=== PATIENT | male | born 1965 | race African-American/Black ===

== ENCOUNTER 2019-06-02 15:50 | Inpatient (IN) | payer OTHER ==
[2019-06-02] MEDS ORDERED: guaiFENesin 200 MG/10 ML 10 ML UNIT-DOSE CUPS PO PRN (17:06)
[2019-06-02] MEDS ORDERED: MAGNESIUM HYDROX 2400MG/30ML ORAL SUSPENSION 30 ML CUP PO PRN (17:06)
[2019-06-02] MEDS ORDERED: ACETAMINOPHEN 325 MG TABLET (FP) PO PRN (17:06)
[2019-06-02] MEDS ORDERED: MAGNESIUM CITRATE 300 ML BOTTLE PO PRN (17:06)
[2019-06-02] MEDS ORDERED: MAG HYDROX/AL HYDROX/SIMETH 30 ML UNIT-DOSE CUP PO PRN (17:06)
[2019-06-02] MEDS ORDERED: IBUPROFEN 400 MG TABLET (FP) PO PRN (17:06)
[2019-06-02] MEDS ORDERED: MENTHOL/PHENOL 1 EACH UD MM PRN (17:06)
[2019-06-02] MEDS ORDERED: P-EPHED 60MG/TRIPROLIDI 2.5MG TABLET PO PRN (17:06)
--- NOTE | 2019-06-02 17:08 | PN ---
[facility] Progress Note Note: pt transferred from detox to rehab today per nursing
--- NOTE | 2019-06-02 17:25 | CONSULT ---
[facility] Psychiatric Consult - Data Date of interview: 06/02/19 Admission source: Transfer from [address] [place] [address]. Identifying data: Transition to [facility] [place] [address] [place] [address] (post- detoxification) for this 53 y/o [place]-born male who sought to enlist in rehabilitation treatment for maintenance of sobriety (EDWARD issues : alcohol, cocaine, nicotine) + management of co-morbid schizoaffective disorder. Patient is single, no dependents, homeless, unemployed and supported on SSI/SSD benefits. Substance Abuse History: Discussed with the patient. EDWARD profile as follows : Smoking history: Current every day smoker. Have you smoked in the past 12 months: Yes. Aproximately how many cigarettes per day: 20. Cigars Per Day: 0. Hx Chewing Tobacco Use: No. Initiated information on smoking cessation: Yes. 'Breaking Loose' booklet given: 05/30/19. - Substances abused. Alcohol. Substance route: Oral. Amount used: 4 pints. Age of first use: 19. Date of last use: 05/29/19. Crack. Substance route: Smoking. Frequency: Daily. Amount used: $20 - 200. Age of first use: 32. Date of last use: 05/29/19 Medical History: Medical profile is remarkable for hypercholesterolemia, hypertension, peripheral neuropathy and history of surgeries (fracture of mandible, extraction of wisdom tooth). Psychiatric History: Extensive history of psychiatric illness (onset of emotional disturbances : early 30's). Patient admits to a history of multiple psychiatric hospitalizations ([facility], [facility]). First hospitalization had occurred in 1989 ([facility]). Patient was initially diagnosed with Schizophrenia but this diagnosis was later revised to Schizoaffective Disorder. Mr Campos reports current psychiatric follow-up, under the care of Dr Solo, at the [facility] (located at [address] [facility] in [place], [place]). Patient is still maintained on a regimen of olanzapine 20 mg/hs + mirtazapine 7.5 mg/hs. History of one suicide attempt via overdose with pills (1999). Physical/Sexual Abuse/Trauma History: Patient denies. Additional Comment: Urine drug screen results: CRISTHIAN-Cocaine, BZO-Benzodiazepines. Noted. Mental Status Exam - Mental Status Exam Alert and Oriented to: Time, Place, Person Cognitive Function: Good Patient Appearance: Well Groomed Mood: Hopeful, Euthymic Affect: Appropriate, Normal Range Patient Behavior: Appropriate, Cooperative Speech Pattern: Clear, Appropriate Voice Loudness: Normal Thought Process: Goal Oriented Thought Disorder: Not Present Hallucinations: Denies Suicidal Ideation: Denies Homicidal Ideation: Denies Insight/Judgement: Fair Sleep: Fair Appetite: Good Gait/Station: Normal Psychiatric Findings - Problem List ([place] 1, 2,3) (1) Alcohol dependence Current Visit: Yes Status: Chronic (2) Cocaine dependence Current Visit: Yes Status: Chronic (3) Nicotine dependence, uncomplicated Current Visit: Yes Status: Chronic Qualifiers: Nicotine product type: cigarettes Qualified Code(s): F17.210 - Nicotine dependence, cigarettes, uncomplicated (4) Schizoaffective disorder Current Visit: Yes Status: Chronic Qualifiers: Schizoaffective disorder type: bipolar Qualified Code(s): F25.0 - Schizoaffective disorder, bipolar type (5) Insomnia Current Visit: Yes Status: Chronic - Initial Treatment Plan Initial Treatment Plan: Psychoeducation. Motivational counseling. Sleep hygiene. Support and reassurance provided to the patient. AA meetings. Groups. Individual psychotherapy. Recreational therapy. Continuity of care via resumption of med ications (from [address] [place] [address]) : gabapentin 100 mg po tid + olanzapine 20 mg po hs + mirtazapine 7.5 mg po hs. Side effects/benefits of these medications are reviewed with patient. Mr Campos endorses good tolerability + efficacious response. He remains in agreement with this plan of care. Informed consent (verbal) given to MD. Perdomo.
[2019-06-02] MEDS: VARENICLINE TARTRATE 1 MG TAB PO SCH (21:02)
[2019-06-02] MEDS: THIAMINE HCL 100 MG TABLET (FP) PO SCH (21:03)
[2019-06-02] MEDS: GABAPENTIN 100 MG CAPSULE PO SCH (21:04)
[2019-06-02] MEDS: OLANZapine 10 MG TABLET PO SCH (21:04)
[2019-06-02] MEDS: MIRTAZAPINE 15 MG TABLET (FP) PO SCH (21:04)
[2019-06-03] MEDS: GABAPENTIN 100 MG CAPSULE PO SCH ×3 (06:25→21:08)
[2019-06-03] MEDS ORDERED: PATIENT'S OWN MEDICATION (NON-FORMULARY) (Olmesartan Medoxomil [Benicar] 20 MG) PO SCH (10:00)
[2019-06-03] MEDS: amLODIPine BESYLATE 10 MG TABLET (FP) PO SCH (10:31)
[2019-06-03] MEDS: VARENICLINE TARTRATE 1 MG TAB PO SCH ×2 (10:31→21:07)
[2019-06-03] MEDS: VALSARTAN 160 MG TABLET (UD) PO SCH (10:31)
[2019-06-03] MEDS: PRENATAL VITAMINS W/ FOLIC ACID TABLET (FP) PO SCH (10:31)
[2019-06-03] MEDS: OLANZapine 10 MG TABLET PO SCH (21:07)
[2019-06-03] MEDS: THIAMINE HCL 100 MG TABLET (FP) PO SCH (21:08)
[2019-06-03] MEDS: MIRTAZAPINE 15 MG TABLET (FP) PO SCH (21:08)
[2019-06-04] MEDS: GABAPENTIN 100 MG CAPSULE PO SCH ×3 (06:52→19:33)
[2019-06-04] MEDS: VALSARTAN 160 MG TABLET (UD) PO SCH (10:01)
[2019-06-04] MEDS: VARENICLINE TARTRATE 1 MG TAB PO SCH ×2 (10:02→21:10)
[2019-06-04] MEDS: PRENATAL VITAMINS W/ FOLIC ACID TABLET (FP) PO SCH (10:02)
[2019-06-04] MEDS: amLODIPine BESYLATE 10 MG TABLET (FP) PO SCH (10:02)
[2019-06-04] MEDS: THIAMINE HCL 100 MG TABLET (FP) PO SCH (21:09)
[2019-06-04] MEDS: OLANZapine 10 MG TABLET PO SCH (21:09)
[2019-06-04] MEDS: MIRTAZAPINE 15 MG TABLET (FP) PO SCH (21:10)
[2019-06-05] MEDS: GABAPENTIN 100 MG CAPSULE PO SCH ×3 (06:34→21:09)
[2019-06-05] MEDS: VALSARTAN 160 MG TABLET (UD) PO SCH (10:24)
[2019-06-05] MEDS: VARENICLINE TARTRATE 1 MG TAB PO SCH ×2 (10:24→21:11)
[2019-06-05] MEDS: PRENATAL VITAMINS W/ FOLIC ACID TABLET (FP) PO SCH (10:24)
[2019-06-05] MEDS: amLODIPine BESYLATE 10 MG TABLET (FP) PO SCH (10:24)
[2019-06-05] MEDS: OLANZapine 10 MG TABLET PO SCH (21:09)
[2019-06-05] MEDS: THIAMINE HCL 100 MG TABLET (FP) PO SCH (21:09)
[2019-06-05] MEDS: MIRTAZAPINE 15 MG TABLET (FP) PO SCH (21:10)
[2019-06-06] MEDS: GABAPENTIN 100 MG CAPSULE PO SCH ×3 (06:46→19:52)
[2019-06-06] MEDS: PRENATAL VITAMINS W/ FOLIC ACID TABLET (FP) PO SCH (10:35)
[2019-06-06] MEDS: amLODIPine BESYLATE 10 MG TABLET (FP) PO SCH (10:35)
[2019-06-06] MEDS: VARENICLINE TARTRATE 1 MG TAB PO SCH ×2 (10:36→21:34)
[2019-06-06] MEDS: VALSARTAN 160 MG TABLET (UD) PO SCH (10:36)
[2019-06-06] MEDS: THIAMINE HCL 100 MG TABLET (FP) PO SCH (21:34)
[2019-06-06] MEDS: OLANZapine 10 MG TABLET PO SCH (21:34)
[2019-06-06] MEDS: MIRTAZAPINE 15 MG TABLET (FP) PO SCH (21:35)
[2019-06-07] MEDS: GABAPENTIN 100 MG CAPSULE PO SCH ×3 (06:13→20:35)
[2019-06-07] MEDS: amLODIPine BESYLATE 10 MG TABLET (FP) PO SCH (09:42)
[2019-06-07] MEDS: PRENATAL VITAMINS W/ FOLIC ACID TABLET (FP) PO SCH (09:42)
[2019-06-07] MEDS: VARENICLINE TARTRATE 1 MG TAB PO SCH ×2 (09:43→21:04)
[2019-06-07] MEDS: VALSARTAN 160 MG TABLET (UD) PO SCH (09:43)
[2019-06-07] MEDS ORDERED: RAPID SEQUENCE INTUBATION KIT NR ONE (10:14)
[2019-06-07] MEDS: OLANZapine 10 MG TABLET PO SCH (21:03)
[2019-06-07] MEDS: THIAMINE HCL 100 MG TABLET (FP) PO SCH (21:03)
[2019-06-07] MEDS: MIRTAZAPINE 15 MG TABLET (FP) PO SCH (21:03)
[2019-06-08] MEDS: GABAPENTIN 100 MG CAPSULE PO SCH ×3 (06:07→20:15)
[2019-06-08] MEDS: amLODIPine BESYLATE 10 MG TABLET (FP) PO SCH (09:55)
[2019-06-08] MEDS: PRENATAL VITAMINS W/ FOLIC ACID TABLET (FP) PO SCH (09:55)
[2019-06-08] MEDS: VALSARTAN 160 MG TABLET (UD) PO SCH (09:56)
[2019-06-08] MEDS: VARENICLINE TARTRATE 1 MG TAB PO SCH ×2 (09:56→21:20)
--- NOTE | 2019-06-08 10:20 | DS ---
[facility] Rehab Discharge Summary - [facility] Rehab Discharge Summary Admission Date: 06/02/19 Discharge Date: 06/08/19 - History Present History: Alcohol dependence, Cocaine dependence Pertinent Past History: Mr. Campos is a 53 yo gentleman who is in rehab for alcohol and cocaine use. He was last admitted here for detox in 2016. PMH: HTN, HLD, on Norvasc/took yesterday, on no meds for HLD PSH: oral Psych: schizoaffective, on Olanzapine, Remeron and gabapentin, Soc: lives in a custodial Substance use hx Alcohol: 4 pints Vodka dialy, first use age 19y No hx of seizure. Hx of several black outs. CracK; $20-200. daily, first use age 32y, Nicotine: one ppd - Discharge Physical Exam Vital Signs: Vital Signs Temperature 97.6 F 06/08/19 06:46 Pulse Rate 75 06/08/19 08:10 Respiratory Rate 18 06/08/19 08:10 Blood Pressure 128/72 06/08/19 08:10 O2 Sat by Pulse Oximetry (%) 99 06/08/19 06:46 Pertinent Admission Physical Exam Findings: Physical General Appearance: No apparent distress HEENTM: Normocephalic Respiratory:Lungs Clear, Neck: supple, Cardiology: S1, S2 Abdominal: + Bowel Sounds Musculoskeletal: Full weight bearing, steady gait, full ROM Neurological: CN 2-12 intact - Treatment Discharge Condition: Discharge condition good (Medically stable for discharge. Pt says he will go back to his program at [facility]) Hospital Course: Patient attended groups, had 1:1 with his counselor, was seen by the psychiatric service. He had no acute or urgent medical problems while in rehab. He was adherent to his medication regimen and his treatment plan. - Medication Discharge Medications: Ambulatory Orders Amlodipine Besylate [Norvasc -] 10 mg PO DAILY #0 tablet 06/05/12 Olanzapine [ZyPREXA -] 20 mg PO HS #30 tablet 12/28/14 Mirtazapine 7.5 mg PO HS 11/26/15 Gabapentin 100 mg PO TID 05/30/19 Olmesartan Medoxomil [Benicar] 20 mg PO DAILY 05/30/19 Varenicline Tartrate [Chantix -] 1 mg PO BID 05/30/19 Valsartan [Diovan] 160 mg PO DAILY tablet 06/02/19 - Medication-Assisted Treatment (MAT) Medication-Assisted Treatment (MAT): No - Discharge Instructions Diet, activity, other medical instructions: Diet: as tolerated Activity: as tolerated Other medical instructions: Please follow up with discharge instructions and return to [facility]. Medical provider at [facility]- Dr. Long, Psychiatric provider: Dr. Grayson - Diagnosis (1) Alcohol dependence Current Visit: Yes Status: Chronic (2) Cocaine dependence Current Visit: Yes Status: Chronic - Follow-up Referral Minutes to complete discharge: 15 - AMA Did Patient Leave Against Medical Advice: No Additional Comments: Patient states he does not need any medications, he gets them from his program on a weekly basis. Patient will be discharged on 06/10/2019
[2019-06-08] MEDS: OLANZapine 10 MG TABLET PO SCH (21:20)
[2019-06-08] MEDS: THIAMINE HCL 100 MG TABLET (FP) PO SCH (21:20)
[2019-06-08] MEDS: MIRTAZAPINE 15 MG TABLET (FP) PO SCH (21:21)
[2019-06-09] MEDS: GABAPENTIN 100 MG CAPSULE PO SCH (06:32)
[2019-06-09 06:39] VITALS: BP 116/77; PULSE 66; TEMP 97.3
[2019-06-09] MEDS ORDERED: PT OWN MED DRAWER 7, Y5N ONE (08:52)
[2019-06-09] MEDS: PRENATAL VITAMINS W/ FOLIC ACID TABLET (FP) PO SCH (09:01)
[2019-06-09] MEDS: VALSARTAN 160 MG TABLET (UD) PO SCH (09:01)
[2019-06-09] MEDS: VARENICLINE TARTRATE 1 MG TAB PO SCH (09:01)
[2019-06-09] MEDS: amLODIPine BESYLATE 10 MG TABLET (FP) PO SCH (09:01)
== END 2019-06-09 08:54 | disposition home or self-care (01) | DRG 895 ==
LOC: YASAS 15:50 → Y3W 15:51
PROVIDERS: ADMIT Allergy & Immunology; ATTEND Allergy & Immunology
PROC: HZ42ZZZ Group Counseling for Substance Abuse Treatment, Cognitive-Behavioral (ICD-10-PCS; principal; 2019-06-02)
DX: F10.20 Alcohol dependence, uncomplicated (principal); F14.20 Cocaine dependence, uncomplicated; F17.210 Nicotine dependence, cigarettes, uncomplicated; F25.9 Schizoaffective disorder, unspecified; G47.00 Insomnia, unspecified; G62.9 Polyneuropathy, unspecified; I10 Essential (primary) hypertension; E78.5 Hyperlipidemia, unspecified; Z91.5 Personal history of self-harm; Z56.0 Unemployment, unspecified; Z59.0 Homelessness; Z91.018 Allergy to other foods

== ENCOUNTER 2023-06-14 19:13 | Inpatient (IN) | payer OTHER ==
[2023-06-14 19:46] VITALS: BMI 27.1
[2023-06-14] MEDS ORDERED: IBUPROFEN 600 MG TABLET (FP) PO PRN (21:31)
[2023-06-14] MEDS ORDERED: BISMUTH SUBSALICYLATE 524 MG/30 ML PO PRN (21:31)
[2023-06-14] MEDS ORDERED: LOPERAMIDE HCL 2 MG CAPSULE PO PRN (21:31)
[2023-06-14] MEDS ORDERED: MAGNESIUM HYDROX 2400MG/30ML ORAL SUSPENSION 30 ML CUP PO PRN (21:31)
[2023-06-14] MEDS ORDERED: ONDANSETRON *ODT* 4 MG TABLET SL PRN (21:31)
[2023-06-14] MEDS ORDERED: BENZOCAINE/MENTHOL (CHLORASEPTIC ) LOZENGE MM PRN (21:31)
[2023-06-14] MEDS ORDERED: NALOXONE HCL 0.4 MG/ML VIAL IM PRN (21:31)
[2023-06-14] MEDS ORDERED: IBUPROFEN 400 MG TABLET (FP) PO PRN (21:31)
[2023-06-14] MEDS ORDERED: NALOXONE HCL (KLOXXADO) 8 MG SPRAY NS PRN (21:31)
[2023-06-14] MEDS ORDERED: POLYETHYLENE GLYCOL (HEALTHYLAX) 3350 17 GM PACKET PO PRN (21:31)
[2023-06-14] MEDS ORDERED: ACETAMINOPHEN 325 MG TABLET (FP) PO PRN (21:31)
[2023-06-14] MEDS ORDERED: guaiFENesin 600 MG TABLET.ER (FP) PO PRN (21:31)
[2023-06-14] MEDS ORDERED: METHOCARBAMOL 500 MG TABLET PO PRN (21:31)
[2023-06-14] MEDS ORDERED: BENZONATATE 200 MG CAPSULE PO PRN (21:31)
[2023-06-14] MEDS: MELATONIN 5 MG TABLETS PO SCH (21:51)
[2023-06-14] MEDS: THIAMINE HCL 100 MG TABLET (FP) PO SCH (21:51)
[2023-06-15] MEDS: PRENATAL VITAMINS W/ FOLIC ACID TABLET (FP) PO SCH (09:47)
[2023-06-15] MEDS ORDERED: ISOSORBIDE MONONITRATE 10 MG TABLET PO SCH (10:30)
[2023-06-15] MEDS: diazePAM 5 MG TABLET PO SCH (10:54)
[2023-06-15] MEDS: LOSARTAN POTASSIUM 50 MG TABLET PO SCH (10:54)
[2023-06-15] MEDS: CLOPIDOGREL BISULFATE 75 MG TABLET (FP) PO SCH (10:54)
[2023-06-15] MEDS: ASPIRIN 81 MG CHEWABLE TABLETS PO SCH (10:54)
[2023-06-15] MEDS: ISOSORBIDE MONONITRATE 60 MG TAB.SR.24H (FP) PO SCH (11:20)
[2023-06-15] MEDS: NIFEdipine E.R 60 MG TABLET PO SCH (11:20)
[2023-06-15 11:44] LABS: HEMATOCRIT 35.5 % (35.4-49); HEMOGLOBIN 11.9 GM/dL (11.7-16.9); MCH 27.9 pg (25.7-33.7); MCHC 33.4 g/dl (32.0-35.9); MEAN CELL VOLUME 83.5 fl (80-96); MEAN PLT VOLUME 8.7 fl (7.5-11.1); PLATELET COUNT 290 10^3/uL (134-434); RBC 4.25 M/mm3 (4.00-5.60); RDW 18.8 % (11.9-15.9); WHITE BLOOD COUNT 3.9 K/mm3 (4.0-10.0)
[2023-06-15 11:49] LABS: CHLORIDE 103 mmol/L (98-107); POTASSIUM 3.7 mmol/L (3.5-5.1); SODIUM 137 mmol/L (136-145)
[2023-06-15 12:10] LABS: ANION GAP 3 mmol/L (4-13); CO2 30 mmol/L (21-32)
[2023-06-15 12:12] LABS: ALBUMIN 3.8 g/dl (3.4-5.0); GLUCOSE,RANDOM 88 mg/dL (74-106)
[2023-06-15 12:14] LABS: SGOT/AST 34 U/L (15-37); SGPT/ALT 33 U/L (13-61)
[2023-06-15 12:16] LABS: ALK PHOS 84 U/L (45-117); BILIRUBIN,TOTAL 0.5 mg/dL (0.2-1)
[2023-06-15] MEDS: NICOTINE POLACRILEX 2 MG GUM BUC PRN (14:58)
[2023-06-15] MEDS: GABAPENTIN 400 MG CAPSULE PO SCH (21:14)
[2023-06-15] MEDS: OLANZapine 7.5 MG TABLET PO SCH (21:14)
[2023-06-15] MEDS: ATORVASTATIN CA 80 MG TABLET (FP) PO SCH (21:14)
[2023-06-15] MEDS: traZODone HCL 50 MG TABLET (FP) PO SCH (21:14)
[2023-06-17] MEDS: diazePAM 5 MG TABLET PO SCH (05:54)
[2023-06-17] MEDS: diazePAM 5 MG TABLET PO PRN (17:11)
[2023-06-18] MEDS: diazePAM 5 MG TABLET PO SCH (05:50)
[2023-06-18] MEDS: MAG HYDROX/AL HYDROX/SIMETH 30 ML UNIT-DOSE CUP PO PRN (22:18)
[2023-06-19] MEDS: diazePAM 5 MG TABLET PO ONE (05:15)
[2023-06-19 07:17] VITALS: RESP 16
[2023-06-19 09:45] VITALS: BP 158/96; PULSE 70; TEMP 97.7
== END 2023-06-19 09:47 | disposition other institution (70) | DRG 897 ==
LOC: YASAS 19:13 → Y3N 20:32
PROVIDERS: ADMIT Allergy & Immunology; ATTEND Surgery
PROC: HZ2ZZZZ Detoxification Services for Substance Abuse Treatment (ICD-10-PCS; principal; 2023-06-14)
DX: F10.230 Alcohol dependence with withdrawal, uncomplicated (principal); F14.20 Cocaine dependence, uncomplicated; F17.210 Nicotine dependence, cigarettes, uncomplicated; F25.0 Schizoaffective disorder, bipolar type; F19.24 Other psychoactive substance dependence with psychoactive substance-induced mood disorder; E78.00 Pure hypercholesterolemia, unspecified; I25.10 Atherosclerotic heart disease of native coronary artery without angina pectoris; I10 Essential (primary) hypertension; Z95.5 Presence of coronary angioplasty implant and graft; G62.9 Polyneuropathy, unspecified; G47.00 Insomnia, unspecified; Z62.810 Personal history of physical and sexual abuse in childhood; Z62.833 Group home staff-child conflict
CPT/HCPCS: 36415; 80053; 80305; 80307; 85027; 86780; 93005; 93010

== ENCOUNTER 2023-10-15 11:28 | Inpatient (IN) | payer OTHER ==
[2023-10-15 11:53] VITALS: BMI 25.1
[2023-10-15] MEDS ORDERED: LOPERAMIDE HCL 2 MG CAPSULE PO PRN (12:07)
[2023-10-15] MEDS ORDERED: guaiFENesin 600 MG TABLET.ER (FP) PO PRN (12:07)
[2023-10-15] MEDS ORDERED: BENZOCAINE/MENTHOL (CHLORASEPTIC ) LOZENGE MM PRN (12:07)
[2023-10-15] MEDS ORDERED: DICYCLOMINE HCL 10 MG CAPSULE PO PRN (12:07)
[2023-10-15] MEDS ORDERED: BENZONATATE 200 MG CAPSULE PO PRN (12:07)
[2023-10-15] MEDS ORDERED: NICOTINE POLACRILEX 2 MG LOZENGE BC PRN (12:07)
[2023-10-15] MEDS ORDERED: MAGNESIUM HYDROX 2400MG/30ML ORAL SUSPENSION 30 ML CUP PO PRN (12:07)
[2023-10-15] MEDS ORDERED: METHOCARBAMOL 500 MG TABLET PO PRN (12:07)
[2023-10-15] MEDS ORDERED: MAG HYDROX/AL HYDROX/SIMETH 30 ML UNIT-DOSE CUP PO PRN (12:07)
[2023-10-15] MEDS ORDERED: NICOTINE POLACRILEX 2 MG GUM BUC PRN (12:07)
[2023-10-15] MEDS ORDERED: POLYETHYLENE GLYCOL (HEALTHYLAX) 3350 17 GM PACKET PO PRN (12:07)
[2023-10-15] MEDS: ONDANSETRON *ODT* 4 MG TABLET SL PRN (13:29)
[2023-10-15] MEDS: ACETAMINOPHEN 325 MG TABLET (FP) PO PRN (13:29)
[2023-10-15] MEDS: diazePAM 5 MG TABLET PO SCH (17:24)
[2023-10-15] MEDS: CLOPIDOGREL BISULFATE 75 MG TABLET (FP) PO SCH (17:24)
[2023-10-15] MEDS: LOSARTAN POTASSIUM 50 MG TABLET PO SCH (17:24)
[2023-10-15] MEDS: MELATONIN 5 MG TABLETS PO SCH (22:35)
[2023-10-15] MEDS: THIAMINE 100 MG TABLET PO SCH (22:35)
[2023-10-15] MEDS: ATORVASTATIN CA 80 MG TABLET (FP) PO SCH (22:35)
[2023-10-16] MEDS: diazePAM 5 MG TABLET PO SCH (05:51)
[2023-10-16] MEDS: PRENATAL VITAMINS W/ FOLIC ACID TABLET (FP) PO SCH (09:51)
[2023-10-16] MEDS: ASPIRIN 81 MG CHEWABLE TABLETS PO SCH (09:51)
[2023-10-16] MEDS: NIFEdipine E.R 60 MG TABLET PO SCH (09:51)
[2023-10-16 11:48] LABS: HEMATOCRIT 33.1 % (35.4-49); HEMOGLOBIN 11.1 GM/dL (11.7-16.9); MCH 28.4 pg (25.7-33.7); MCHC 33.6 g/dl (32.0-35.9); MEAN CELL VOLUME 84.5 fl (80-96); MEAN PLT VOLUME 8.2 fl (7.5-11.1); PLATELET COUNT 310 10^3/uL (134-434); RBC 3.92 M/mm3 (4.00-5.60); RDW 16.5 % (11.9-15.9); WHITE BLOOD COUNT 2.9 K/mm3 (4.0-10.0)
[2023-10-16 11:53] LABS: POTASSIUM 4.1 mmol/L (3.5-5.1)
[2023-10-16 12:02] LABS: ALBUMIN 3.5 g/dl (3.4-5.0); BLOOD UREA NITROGEN 10.5 mg/dL (7-18)
[2023-10-16 12:05] LABS: CREATININE 0.8 mg/dL (0.55-1.3)
[2023-10-16 12:07] LABS: BILIRUBIN,TOTAL 0.3 mg/dL (0.2-1); TOT PROT 6.8 g/dl (6.4-8.2)
[2023-10-16] MEDS: FERROUS SO4 325 MG TABLET (FP) PO SCH (13:48)
[2023-10-16] MEDS: GABAPENTIN 300 MG CAPSULE PO SCH (13:48)
[2023-10-16] MEDS: OLANZapine 10 MG TABLET PO SCH (22:18)
[2023-10-16] MEDS: traZODone HCL 50 MG TABLET (FP) PO SCH (22:19)
[2023-10-17] MEDS: diazePAM 5 MG TABLET PO SCH (05:32)
[2023-10-17] MEDS ORDERED: diazePAM 5 MG TABLET PO SCH (06:00)
[2023-10-17] MEDS: diazePAM 5 MG TABLET PO PRN (22:32)
[2023-10-18] MEDS: diazePAM 5 MG TABLET PO ONE (05:45)
[2023-10-18] MEDS ORDERED: diazePAM 5 MG TABLET PO SCH (06:00)
[2023-10-18 06:01] VITALS: RESP 16
[2023-10-18 09:47] VITALS: BP 109/65; PULSE 56; TEMP 97.3
[2023-10-19] MEDS ORDERED: diazePAM 5 MG TABLET PO ONE (06:00)
== END 2023-10-18 12:09 | disposition home or self-care (01) | DRG 897 ==
LOC: YASAS 11:28 → Y3N 12:35
PROVIDERS: ADMIT Allergy & Immunology; ATTEND Surgery
PROC: HZ2ZZZZ Detoxification Services for Substance Abuse Treatment (ICD-10-PCS; principal; 2023-10-15)
DX: F10.230 Alcohol dependence with withdrawal, uncomplicated (principal); F14.20 Cocaine dependence, uncomplicated; F17.210 Nicotine dependence, cigarettes, uncomplicated; F25.0 Schizoaffective disorder, bipolar type; I10 Essential (primary) hypertension; I25.10 Atherosclerotic heart disease of native coronary artery without angina pectoris; E78.5 Hyperlipidemia, unspecified; G47.00 Insomnia, unspecified; Z62.810 Personal history of physical and sexual abuse in childhood; Z95.5 Presence of coronary angioplasty implant and graft; Z56.0 Unemployment, unspecified
CPT/HCPCS: 36415; 80053; 80305; 80307; 85027; 86780; Q0162